=== PATIENT | female | born 1955 ===

== ENCOUNTER 2021-07-01 12:15 | Inpatient (IN) | payer OTHER ==
[~2021-07-01] VITALS: Ht 165.1 cm; Wt 91.2 kg
[2021-07-02] MEDS ORDERED: PRILOSEC OTC20 MG PO (08:38)
[2021-07-02] MEDS ORDERED: LEVO-T25 MCG PO (08:38)
[2021-07-02] MEDS ORDERED: ZOLOFT50 MG PO (08:39)
[2021-07-02] MEDS ORDERED: LIPITOR20 MG PO (08:39)
[2021-07-02] MEDS ORDERED: PROLIXIN10 MG PO (08:40)
[2021-07-03] MEDS ORDERED: LEVOTHYROXINE25 MC1 (16:50)
[2021-07-03] MEDS ORDERED: SERTRALINE HCL100 MG (16:50)
[2021-07-03] MEDS ORDERED: BANOPHEN50 MG (16:50)
[2021-07-03] MEDS ORDERED: LISINOPRIL20 MG (16:50)
== END 2021-07-04 10:05 | disposition home or self-care (01) | DRG 741 ==
LOC: O/R 07-03 07:30 → SURG 07-03 07:30 → SURH 07-03 12:15 → SURG 07-03 21:37
PROVIDERS: ADMIT Obstetrics & Gynecology Gynecologic Oncology; ATTEND Obstetrics & Gynecology Gynecologic Oncology
PROC: 0UT24ZZ Resection of Bilateral Ovaries, Percutaneous Endoscopic Approach (ICD-10-PCS; 2021-07-03)
PROC: 0UT74ZZ Resection of Bilateral Fallopian Tubes, Percutaneous Endoscopic Approach (ICD-10-PCS; 2021-07-03)
PROC: 07BC4ZZ Excision of Pelvis Lymphatic, Percutaneous Endoscopic Approach (ICD-10-PCS; 2021-07-03)
PROC: 0UT94ZZ Resection of Uterus, Percutaneous Endoscopic Approach (ICD-10-PCS; principal; 2021-07-03 14:00)
DX: C54.1 Malignant neoplasm of endometrium (principal); I10 Essential (primary) hypertension